=== PATIENT | female | born 1985 | race Two or more races ===

== ENCOUNTER 2025-01-16 21:23 | Emergency (ER) | payer OTHER, MEDICAID ==
[~2025-01-16] VITALS: Ht 157.5 cm; Wt 78.1 kg
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
[2025-01-16] MEDS: ONDANSETRON ODT 4 MG TAB PO ONE (23:48)
[2025-01-16] MEDS: HYDROcodone-ACET 10/325MG TAB PO ONE (23:48)
[2025-01-16 23:50] VITALS: BP 129/77; PULSE 75; RESP 16; TEMP 98.7; O2SAT 99
[2025-01-17] MEDS ORDERED: IBUP-1455 PO (01:08)
[2025-01-17] MEDS ORDERED: HYDR-4902 PO (01:08)
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
== END 2025-01-17 01:39 | disposition home or self-care (01) ==
LOC: ER 21:23
DX: S16.1XXA Strain of muscle, fascia and tendon at neck level, initial encounter (principal); S50.11XA Contusion of right forearm, initial encounter; S80.01XA Contusion of right knee, initial encounter; V43.52XA Car driver injured in collision with other type car in traffic accident, initial encounter; Y93.89 Activity, other specified; Y92.410 Unspecified street and highway as the place of occurrence of the external cause; Y99.8 Other external cause status
CPT/HCPCS: 70450; 72125; 73562; 99284; Q0162

== ENCOUNTER 2025-01-19 11:48 | Emergency (ER) | payer MEDICAID ==
[~2025-01-19] VITALS: Ht 157.5 cm; Wt 79.3 kg
[~2025-01-19 11:48] MED LIST: HYDR-4902 PO; IBUP-1455 PO
[2025-01-19 11:53] VITALS: BP 117/84; PULSE 83; RESP 13; TEMP 98.2; O2SAT 98
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
[2025-01-19] MEDS ORDERED: PANT40TA2 PO (14:12)
== END 2025-01-20 03:39 | disposition home or self-care (01) ==
LOC: ER 11:48
DX: K29.00 Acute gastritis without bleeding (principal); Z79.899 Other long term (current) drug therapy